=== PATIENT | female | born 1980 | race Caucasian/White ===

== ENCOUNTER 2019-01-07 16:40 | Emergency (ER) | payer BC ==
--- NOTE | ~2019-01-07 | EKG ---
[place], [place] ELECTROCARDIOGRAM REPORT NAME: SEAN BROWN UNIT #: [id number] ROOM: DOCTOR[facility] RE[facility] BIRTHDATE: [birth year] [facility] Test Date: 2019-01-07 Test Time: 16:44:11 Pat Name: SEAN BROWN Department: Room: [facility] Gender: F Assistant Hvac Mechanic: Sophie Galeana : 1980 Requested By: ARTURO GARCIA Order Number: [id number] Reading MD: Jack Marinelli MD Measurements Intervals [place] Rate: 89 P: 27 NV: 156 QRS: 62 QRSD: 93 T: 23 QT: 370 QTc: 451 Interpretive Statements Sinus rhythm Low voltage, precordial leads Probable anteroseptal infarct, old Electronically Signed On 01-08-2019 13:48:25 PDT by Jack Marinelli MD CM:EKGRPT:ELECTROCARDIOGRAM REPORT [id number] ARTURO CONNORS DRAFT REPORT ARTURO GARCIA DO
[2019-01-07 17:16] LABS: BASO % 0.3 % (0.0-1.0); EOS # 0.1 10*3/uL (0.0-0.4); EOS % 1.9 % (1.0-4.0); HEMATOCRIT 41.5 % (37.0-47.0); HEMOGLOBIN 14.4 g/dl (12.0-16.0); LYMPH # 1.7 10*3/uL (1.3-4.4); LYMPH % 24.9 % (27.0-41.0); MEAN CORPUSCULAR HGB 31.2 pg (27.0-31.0); MEAN CORPUSCULAR HGB CONC 34.7 g/dl (33.0-37.0); MONO # 0.3 10*3/uL (0.1-1.0); MONO % 4.8 % (3.0-9.0); NEUT # 4.6 10*3/uL (2.3-7.9); NEUT % 67.8 % (47.0-73.0); PLATELET COUNT AUTOMATED 235 10*3/uL (130-400); RED BLOOD COUNT 4.61 10*6/uL (4.10-5.10); RED CELL DISTRI WIDTH 12.3 % (0-14.5); WHITE BLOOD COUNT 6.7 10*3/uL (4.8-10.8)
[2019-01-07 17:30] LABS: ACT PARTIAL THROMBO TIME 25.9 SECONDS (20.8-31.5)
[2019-01-07 17:37] LABS: ALBUMIN 3.6 gm/dl (3.1-4.5); ALKALINE PHOSPHATASE 114 U/L (45-117); BUN 17 mg/dl (7-24); CHLORIDE 106 mmol/L (98-107); CREATININE 0.98 mg/dL (0.55-1.02); SGOT/AST 18 IU/L (3-35); SGPT/ALT 26 U/L (12-78); SODIUM 140 mmol/L (136-145)
[2019-01-07 17:51] LABS: TROPONIN I < 0.015 ng/ml (<0.045)
== END 2019-01-07 19:17 | disposition home or self-care (01) ==
LOC: ED 16:40
PROVIDERS: Emergency Medicine
DX: R07.89 Other chest pain (principal); F17.200 Nicotine dependence, unspecified, uncomplicated

== ENCOUNTER 2024-05-08 21:31 | Emergency (ER) | payer OTHER ==
[2024-05-08 21:54] LABS: BASO # 0.1 10*3/uL (0.0-0.1); BASO % 0.5 % (0.0-1.0); EOS # 0.3 10*3/uL (0.0-0.4); EOS % 2.9 % (1.0-4.0); HEMATOCRIT 39.9 % (37.0-47.0); LYMPH # 2.6 10*3/uL (1.3-4.4); LYMPH % 27.6 % (27.0-41.0); MEAN CELL VOLUME 90.3 fl (81.0-99.0); MEAN CORPUSCULAR HGB 30.8 pg (27.0-31.0); MEAN CORPUSCULAR HGB CONC 34.1 g/dl (33.0-37.0); MEAN PLATELET VOLUME 9.4 fl (9.6-12.3); MONO # 0.5 10*3/uL (0.1-1.0); MONO % 5.8 % (3.0-9.0); NEUT # 5.7 10*3/uL (2.3-7.9); NEUT % 61.6 % (47.0-73.0); PLATELET COUNT AUTOMATED 272 10*3/uL (130-400); RED BLOOD COUNT 4.42 10*6/uL (4.10-5.10); RED CELL DISTRI WIDTH 12.2 % (0-14.5); WHITE BLOOD COUNT 9.3 10*3/uL (4.8-10.8)
[2024-05-08 22:12] LABS: ALKALINE PHOSPHATASE 102 U/L (46-116); BUN 14 mg/dl (9-23); CHLORIDE 108 mmol/L (98-107); POTASSIUM 3.8 mmol/L (3.4-5.1); SGPT/ALT 23 U/L (5-49); TOTAL PROTEIN 7.3 gm/dL (6.0-8.0)
[2024-05-08] MEDS ORDERED: SODIUM CHLORIDE 0.9% 1,000 ML IV ONE (22:25)
[2024-05-08] MEDS ORDERED: Ondansetron Hydrochloride 4 MG/2 ML VIAL IV ONE (22:25)
[2024-05-08] MEDS ORDERED: diphenhydrAMINE hydrochloride 50 MG/ML VIAL IV ONE (22:25)
[2024-05-08] MEDS ORDERED: Ketorolac Tromethamine 30 MG/ML VIAL IV ONE (22:25)
[2024-05-08 22:38] LABS: ACT PARTIAL THROMBO TIME 29.1 SECONDS (20.0-32.1)
[2024-05-08] MEDS ORDERED: Dexamethasone Sodium Phospha 20 MG/5 ML VIAL IV ONE (23:55)
[2024-05-08] MEDS ORDERED: SUMATRIPTAN SUCCINATE 50 MG TAB PO ONE (23:55)
[2024-05-09] MEDS ORDERED: Ondansetron4 MG PO (01:39)
[2024-05-09] MEDS ORDERED: BENADRYL25 M2 SL (01:39)
== END 2024-05-09 02:06 | disposition home or self-care (01) ==
LOC: ED 21:31
PROVIDERS: Internal Medicine
DX: R51.9 Headache, unspecified (principal); Z91.041 Radiographic dye allergy status; Z91.013 Allergy to seafood; Z91.040 Latex allergy status